=== PATIENT | male | born 1985 | race Caucasian/White ===

== ENCOUNTER 2017-12-29 11:17 | Emergency (ER) | payer BC ==
--- NOTE | 2017-12-29 11:41 | EDM.PDOC ---
ED HPI GENERAL MEDICAL PROBLEM - General Chief Complaint: Back Pain or Injury Stated Complaint: BACK PAIN Time Seen by Provider: 12/29/17 11:25 Source of Information: Reports: Patient, Family History Limitations: Reports: No Limitations - History of Present Illness INITIAL COMMENTS - FREE TEXT/NARRATIVE: Toro comes into [facility] ED with a 3 day hx of progressive lower back pain and spasms that seems to have migrated today into the upper back on the R side. There is no injury hx. There is no radiation of pain or stiffness into the LEs. His occupation is sedentary, and he does not exercise. He has tried Ibuprofen without benefit. Treatments CIRCUIT JUDGE: Reports: Acetaminophen, NSAIDS Right Middle Back Pain Score (Numeric/FACES): 6 - Related Data Allergies Allergy/AdvReac Type Severity Reaction Status Date / Time Penicillins Allergy Rash Verified 12/29/17 11:27 Home Meds: Home Meds Cyclobenzaprine [Flexeril] 10 mg PO TID PRN #20 tab 12/29/17 [Rx] ED ROS GENERAL - Review of Systems Review Of Systems: ROS reveals no pertinent complaints other than HPI. ED EXAM,LOWER BACK PAIN/INJURY - Physical Exam Exam: See Below Exam Limited By: No Limitations General Appearance: Alert, WD/WN, Mild Distress Head: Normocephalic Neck: Normal Inspection, Supple, Non-Tender, Full Range of Motion Respiratory/Chest: Lungs Clear, Normal Breath Sounds, Chest Non-Tender Cardiovascular: Regular Rate, Rhythm, No Murmur (Male) Exam: Deferred Rectal (Males) Exam: Deferred Back Exam: Decreased Range of Motion (SFB 80 deg, lat and rotary bend are sxs limited), Paraspinal Tenderness Extremities: Normal Inspection, Normal Range of Motion, Non-Tender Neurological: Alert, Normal Mood/Affect, CN II-XII Intact, Normal Gait, No Motor /Sensory Deficits Psychiatric: Normal Affect, Normal Mood Skin Exam: Warm, Dry, Intact, Normal Color Lymphatic: No Adenopathy Course - Vital Signs Text/Narrative:: No meds were administered during visit to [facility] ED. Last Recorded V/S: Last Vital Signs Temp 36.3 C 12/29/17 11:29 Pulse 123 H 12/29/17 11:29 Resp 16 12/29/17 11:29 BP 158/89 H 12/29/17 11:29 Pulse Ox 93 L 12/29/17 11:29 Departure - Departure Time of Disposition: 11:39 Disposition: Home, Self-Care 01 Condition: Fair Clinical Impression: Strain, back Qualifiers: Encounter type: initial encounter Qualified Code(s): S39.012A - Strain of muscle, fascia and tendon of lower back, initial encounter - Discharge Information Prescriptions: Cyclobenzaprine [Flexeril] 10 mg PO TID PRN #20 tab PRN Reason: Breakthrough Pain Referrals: PCP,None [Primary Care Provider] - - Problem List & Annotations (1) Strain, back SNOMED Code(s): 741792571 Code(s): S39.012A - STRAIN OF MUSCLE, FASCIA AND TENDON OF LOWER BACK, INIT Status: Acute Current Visit: Yes Annotation/Comment:: I dispensed Flexeril 10 mg tabs tid as directed, and he should continue NSAIDs for pain management as needed. PT emphasizing core strengthening would be favorable. Qualifiers: Encounter type: initial encounter Qualified Code(s): S39.012A - Strain of muscle, fascia and tendon of lower back, initial encounter - Problem List Review Problem List Initiated/Reviewed/Updated: Yes - Assessment/Plan Plan: Follow up with PCP as needed.
== END 2017-12-29 11:40 | disposition home or self-care (01) ==
LOC: FB.ED 11:17
DX: S39.012A Strain of muscle, fascia and tendon of lower back, initial encounter (principal); Z88.0 Allergy status to penicillin; Z79.899 Other long term (current) drug therapy; X50.1XXA Overexertion from prolonged static or awkward postures, initial encounter
CPT/HCPCS: 99283